=== PATIENT | female | born 1990 | race Caucasian/White ===

== ENCOUNTER 2020-05-21 09:00 | Observation (INO) | payer OTHER ==
[~2020-05-21] VITALS: Ht 160 cm; Wt 80.7 kg
[2020-05-21 09:37] VITALS: BP 112/75
[2020-05-21] MEDS ORDERED: RINGERS SOLUTION,LACTATED 1,000 ML IV ONE (11:00)
[2020-05-21] MEDS ORDERED: RINGERS SOLUTION,LACTATED 1,000 ML IV SCH (12:00)
== END 2020-05-21 14:55 | disposition home or self-care (01) ==
LOC: 4S 09:00
PROVIDERS: ADMIT Obstetrics & Gynecology; ATTEND Obstetrics & Gynecology
DX: Z34.93 Encounter for supervision of normal pregnancy, unspecified, third trimester (principal); Z3A.37 37 weeks gestation of pregnancy
CPT/HCPCS: 76811; 96360; 96361; 99219; J7120

== ENCOUNTER 2020-05-30 08:35 | Inpatient (IN) | payer OTHER ==
[~2020-05-30] VITALS: Ht 160 cm; Wt 82.6 kg
[2020-05-30 09:14] VITALS: BP 119/64
[2020-05-30] MEDS ORDERED: RINGERS SOLUTION,LACTATED 1,000 ML IV ONE (10:08)
[2020-05-30] MEDS ORDERED: OXYTOCIN 30 UNITS/LACT RINGERS 500 ML IV ONE (10:15)
[2020-05-30] MEDS ORDERED: RINGERS SOLUTION,LACTATED 1,000 ML IV PRN (10:15)
[2020-05-30] MEDS ORDERED: CITRIC ACID/SODIUM CITRATE 30 ML SOLUTION UDCUP PO PRN (10:15)
[2020-05-30] MEDS ORDERED: LIDOCAINE/PF 1% 30 ML VIAL INJ PRN (10:15)
[2020-05-30] MEDS ORDERED: METOCLOPRAMIDE HCL 5 MG/ML 2 ML VIAL IVP PRN (10:15)
[2020-05-30] MEDS ORDERED: METHYLERGONOVINE MALEATE 0.2 MG/ML VIAL IM PRN (10:15)
[2020-05-30 10:18] LABS: COVID AG,FIA SOURCE NASOPHARYNGEAL
[2020-05-30] MEDS: RINGERS SOLUTION,LACTATED 1,000 ML IV SCH ×4 (10:22→18:13)
[2020-05-30 11:04] LABS: BASOPHILS % (AUTO) 0.2 % (0.0-2.0); EOSINOPHILS % (AUTO) 0.5 % (1.0-6.0); HEMATOCRIT 36.9 % (36-46); HEMOGLOBIN 12.9 g/dL (12.0-16.0); LYMPHOCYTES # (AUTO) 1.7 K/uL (1.0-4.8); LYMPHOCYTES % (AUTO) 12.1 % (22.0-44.0); MEAN CORPUSCULAR HEMOGLOBIN 33.1 pg (26.0-34.0); MEAN CORPUSCULAR VOLUME 95 fL (80-100); MONOCYTES # (AUTO) 0.7 K/uL (0.1-1.0); MONOCYTES % (AUTO) 4.9 % (2.0-9.0); NEUTROPHILS # (AUTO) 11.4 K/uL (1.8-7.7); NEUTROPHILS % (AUTO) 82.3 % (40.0-70.0); PLATELET COUNT (AUTO)-OB 216 K/uL (150-450); RED BLOOD CELL COUNT(AUTO) 3.89 MIL/uL (4.00-5.20); RED CELL DISTRIBUTION WIDTH 13.8 % (11.5-14.5)
[2020-05-30] MEDS ORDERED: INFLUENZA VIRUS VACCINE QVS 2020-21 (6MO+)/PF 60 MCG/0.5 ML SYRINGE IM ONE (11:30)
[2020-05-30] MEDS ORDERED: ROPIVACAINE HCL/PF 0.2% 100 ML ED ONE (11:40)
[2020-05-30] MEDS ORDERED: BUPIVACAINE HCL/PF 0.25% 10 ML VIAL ONE (11:40)
[2020-05-30] MEDS ORDERED: NALBUPHINE HCL 10 MG/ML VIAL IVP PRN (12:30)
[2020-05-30] MEDS ORDERED: AZITHROMYCIN 500 MG/NS 250 ML IV ONE (12:30)
[2020-05-30] MEDS ORDERED: ROPIVACAINE HCL/PF 0.2% 100 ML ED PRN (12:30)
[2020-05-30] MEDS ORDERED: DiphenhydrAMINE HCL 50 MG/ML VIAL IVP PRN (12:30)
[2020-05-30] MEDS ORDERED: ONDANSETRON HCL 4 MG/2 ML VIAL IVP PRN (12:30)
[2020-05-30] MEDS ORDERED: OXYTOCIN 30 UNITS/LACT RINGERS 500 ML IV PRN (13:00)
[2020-05-30] MEDS: AZITHROMYCIN 500 MG/NS 250 ML IV SCH ×2 (14:04→15:07)
[2020-05-30] MEDS ORDERED: EPHEDrine SULFATE 50 MG/ML VIAL IVP ONE (17:30)
[2020-05-30] MEDS ORDERED: OXYGEN THERAPY IH SCH (20:00)
[2020-05-30] MEDS ORDERED: GLYCERIN/WITCH HAZEL LEAF 40 PADS JAR TP PRN (22:15)
[2020-05-30] MEDS ORDERED: BENZOCAINE 20%/MENTHOL 56 GM SPRAY CANISTER TP PRN (22:15)
[2020-05-30] MEDS ORDERED: LANOLIN 7 GM OINTMENT TP PRN (22:15)
[2020-05-30] MEDS ORDERED: MEASLES/MUMPS/RUBELLA VACCINE, LIVE 0.5 ML/VIAL SQ ONE (22:15)
[2020-05-30] MEDS: IBUPROFEN 600 MG TABLET PO SCH (22:28)
[2020-05-31 05:49] LABS: BASOPHILS % (AUTO) 0.1 % (0.0-2.0); EOSINOPHILS % (AUTO) 0.1 % (1.0-6.0); HEMATOCRIT 30.4 % (36-46); HEMOGLOBIN 10.5 g/dL (12.0-16.0); LYMPHOCYTES # (AUTO) 1.8 K/uL (1.0-4.8); LYMPHOCYTES % (AUTO) 8.2 % (22.0-44.0); MEAN CORPUSCULAR HEMOGLOBIN 32.6 pg (26.0-34.0); MEAN CORPUSCULAR HGB CONC 34.6 G/dL (31.0-37.0); MEAN CORPUSCULAR VOLUME 94 fL (80-100); MONOCYTES # (AUTO) 1.5 K/uL (0.1-1.0); MONOCYTES % (AUTO) 6.7 % (2.0-9.0); NEUTROPHILS # (AUTO) 19.2 K/uL (1.8-7.7); NEUTROPHILS % (AUTO) 84.9 % (40.0-70.0); PLATELET COUNT (AUTO)-OB 193 K/uL (150-450); RED BLOOD CELL COUNT(AUTO) 3.23 MIL/uL (4.00-5.20); RED CELL DISTRIBUTION WIDTH 13.7 % (11.5-14.5)
[2020-05-31] MEDS: IBUPROFEN 600 MG TABLET PO SCH ×3 (05:54→18:52)
[2020-05-31] MEDS ORDERED: CYCLOBENZAPRINE HCL 10 MG TABLET PO ONE (07:30)
[2020-05-31] MEDS: SENNA/DOCUSATE SODIUM 8.6-50 MG TABLET PO SCH ×2 (09:47→21:39)
[2020-05-31] MEDS: ACETAMINOPHEN 325 MG TABLET PO PRN ×2 (10:43→21:39)
[2020-06-01] MEDS: IBUPROFEN 600 MG TABLET PO SCH ×2 (01:37→07:39)
[2020-06-01] MEDS ORDERED: IBUP-2070 PO (13:13)
== END 2020-06-01 13:45 | disposition home or self-care (01) | DRG 807 ==
LOC: 4S 08:35 → OBSVTOIN 08:35
PROVIDERS: ADMIT Obstetrics & Gynecology; ATTEND Obstetrics & Gynecology
PROC: 10907ZC Drainage of Amniotic Fluid, Therapeutic from Products of Conception, Via Natural or Artificial Opening (ICD-10-PCS; principal; 2020-05-30)
PROC: 10E0XZZ Delivery of Products of Conception, External Approach (ICD-10-PCS; 2020-05-30)
PROC: 3E0R3BZ Introduction of Anesthetic Agent into Spinal Canal, Percutaneous Approach (ICD-10-PCS; 2020-05-30)
PROC: 00HU33Z Insertion of Infusion Device into Spinal Canal, Percutaneous Approach (ICD-10-PCS; 2020-05-30)
DX: O80 Encounter for full-term uncomplicated delivery (principal); Z37.0 Single live birth; Z3A.38 38 weeks gestation of pregnancy; Z20.828 Contact with and (suspected) exposure to other viral communicable diseases
CPT/HCPCS: 85461; 86850; 86900; 86901; 87426; J0456; J2590; J2795; J3490; J7120